=== PATIENT | female | born 1970 | race African-American/Black ===

== ENCOUNTER 2016-06-06 11:53 | Inpatient (IN) | payer OTHER ==
[2016-06-06 14:03] VITALS: BMI 31.8
--- NOTE | 2016-06-06 18:24 | HP ---
[id number] Restless Observation: 1= Difficult to Sit Still Pupil Size: 0= Normal to Room Light Bone or Joint Aches: 2= Severe Diffuse Aches Runny Nose/ Eye Tearin= Runny Nose/Eyes GI Upset > 30mins: 1= Stomach Cramp Tremor Observation: 1= Tremor Mcdonald, Not Seen Yawning Observation: 1= 1-2x During Session Anxiety or Irritability: 2=Irritable/Anxious Goose Flesh Skin: 3=Piloerection COWS Score: 14 CIWA Score - CIWA Score Nausea/Vomitin-Mild Nausea/No Vomiting Muscle Tremors: 3 Anxiety: 4-Mod. Anxious/Guarded Agitation: 4-Moderately Restless Paroxysmal Sweats: 1-Minimal Palms Moist Orientation: 1-Uncertain about Date Tacttile Disturbances: 0-None Auditory Disturbances: 0-None Visual Disturbances: 0-None Headache: 3-Moderate CIWA-Ar Total Score: 17 Admission ROS BHS - HPI Chief Complaint: withdrawal sx Allergies/Adverse Reactions: Allergies Allergy/AdvReac Type Severity Reaction Status Date / Time No Known Allergies Allergy Verified 06/06/16 17:23 History of Present Illness: 45 years old female with long history of opiate xanax nicotine dependence has hypertension diabetes ii and depression is admitted to detox Exam Limitations: No Limitations - Ebola screening Have you traveled outside of the country in the last 21 days: No Have you had contact with anyone from an Ebola affected area: No Have you been sick,other than usual withdrawal symptoms: No Do you have a fever: No - Review of Systems Constitutional: Chills, Changes in sleep, Weight Stable EENT: reports: Other (eye glase) Respiratory: reports: No Symptoms reported Cardiac: reports: No Symptoms Reported GI: reports: Nausea, Poor Fluid Intake, Abdominal cramping : reports: No Symptoms Reported Musculoskeletal: reports: Back Pain, Joint Pain, Muscle Pain, Neck Pain Integumentary: reports: No Symptoms Reported Neuro: reports: Tremors Endocrine: reports: No Symptoms Reported Hematology: reports: No Symptoms Reported Psychiatric: reports: Judgement Intact, Depressed Other Systems: Reviewed and Negative Patient History - Patient Medical History Hx Anemia: No Hx Asthma: No Hx Chronic Obstructive Pulmonary Disease (COPD): No Hx Cancer: No Hx Cardiac Disorders: No Hx Congestive Heart Failure: No Hx Hypertension: Yes Hx Hypercholesterolemia: No Hx Pacemaker: No HX Cerebrovascular Accident: No Hx Seizures: No Hx Dementia: No Hx Diabetes: Yes Hx Gastrointestinal Disorders: No Hx Liver Disease: No Hx Genitourinary Disorders: No Hx Sexually Transmitted Disorders: No Hx Renal Disease (ESRD): No Hx Thyroid Disease: No Hx Human Immunodeficiency Virus (HIV): No Hx Hepatitis C: No Hx Depression: Yes Hx Suicide Attempt: Yes (2009 cut left wrist) Hx Bipolar Disorder: No Hx Schizophrenia: No - Patient Surgical History Past Surgical History: No Hx Neurologic Surgery: No Hx Cataract Extraction: No Hx Cardiac Surgery: No Hx Lung Surgery: No Hx Breast Surgery: No Hx Breast Biopsy: No Hx Abdominal Surgery: No Hx Appendectomy: No Hx Cholecystectomy: No Hx Genitourinary Surgery: No Hx Section: No Hx Orthopedic Surgery: No Hx Hysterectomy: No - PPD History Previous Implant?: Yes Documented Results: Negative w/o proof Implanted On Prior R Admission?: No PPD to be Administered?: Yes - Reproductive History Patient is a Female of Child Bearing Age (11 -55 yrs old): Yes Last Menstrual Period: 11/07/15 Patient : No - Smoking Cessation Smoking history: Current every day smoker Have you smoked in the past 12 months: Yes Aproximately how many cigarettes per day: 15 Cigars Per Day: 0 Hx Chewing Tobacco Use: No Initiated information on smoking cessation: Yes 'Breaking Loose' booklet given: 06/06/16 - Substance & Tx. History Hx Alcohol Use: No Hx Substance Use: Yes Substance Use Type: Opiates, Tranquilizers Hx Substance Use Treatment: Yes - Substances Abused Heroin Route: Inhalation Frequency: Daily Amount used: 5 bags Age of first use: 32 Date of Last Use: 06/05/16 Alprazolam (Xanax) Route: Oral Frequency: 3-6 times per week Amount used: 2mg Age of first use: 32 Date of Last Use: 06/05/16 Family Disease History - Family Disease History Family History: Unable to Obtain (adopted) Admission Physical Exam BHS - Vital Signs Vital Signs: Vital Signs - 24 hr 06/06/16 13:55 Temperature 96.9 F L Pulse Rate 77 Respiratory 18 Rate Blood Pressure 194/110 - Physical General Appearance: Yes: Appropriately Dressed, Moderate Distress, Obese, Tremorous, Irritable, Sweating, Anxious HEENTM: Yes: Hearing grossly Normal, Normal ENT Inspection, Normocephalic, Normal Voice Respiratory: Yes: Chest Non-Tender, Lungs Clear, Normal Breath Sounds, No Respiratory Distress, No Accessory Muscle Use Neck: Yes: Supple, Trachea in good position Breast: Yes: Breasts Symetrical Cardiology: Yes: Regular Rhythm, Regular Rate, S1, S2 Abdominal: Yes: Non Tender, Soft Genitourinary: Yes: Within Normal Limits Back: Yes: Normal Inspection Musculoskeletal: Yes: full range of Motion, Gait Steady, Back pain, Muscle Pain Extremities: Yes: Normal Inspection, Normal Range of Motion, Non-Tender, Tremors Neurological: Yes: Alert, Motor Strength 5/5, Normal Response, Depressed Affect Integumentary: Yes: Warm, Clammy Lymphatic: Yes: Within Normal Limits - Diagnostic (1) Opioid dependence with withdrawal Current Visit: Yes Status: Acute (2) Sedative, hypnotic or anxiolytic dependence with withdrawal, uncomplicated Current Visit: Yes Status: Acute (3) Hypertension Current Visit: Yes Status: Acute Qualifiers: Hypertension type: essential hypertension Qualified Code(s): I10 - Essential (primary) hypertension (4) Diabetes mellitus type II, controlled Current Visit: Yes Status: Acute Qualifiers: Diabetes mellitus complication status: with neurologic complications Diabetes mellitus long term care administrator insulin use: without long term care administrator use (5) Nicotine dependence Current Visit: Yes Status: Acute Qualifiers: Nicotine product type: cigarettes Substance use status: in withdrawal Qualified Code(s): F17.213 - Nicotine dependence, cigarettes, with withdrawal (6) Depression (emotion) Current Visit: Yes Status: Suspected Qualifiers: Depression Type: dysthymia Qualified Code(s): F34.1 - Dysthymic disorder Cleared for Admission [facility] - Detox or Rehab [facility] Level of Care: Medically Managed Detox Regimen/Protocol: Methadone/Valium [facility] Breath Alcohol Content Breath Alcohol Content: 0 Urine Pregancy Test - Result Urine Test Results: Negative- NO Line Present Urine Drug Screen - Results Drug Screen Negative: No Urine Drug Screen Results: OPI-Opiates, BZO-Benzodiazepines
[2016-06-06] MEDS ORDERED: MENTHOL/PHENOL 1 EACH UD MM PRN (18:29)
[2016-06-06] MEDS ORDERED: diphenhydrAMINE HCL 50 MG CAPSULE PO PRN (18:29)
[2016-06-06] MEDS ORDERED: MAG HYDROX/AL HYDROX/SIMETH 30 ML UNIT-DOSE CUP PO PRN (18:29)
[2016-06-06] MEDS ORDERED: guaiFENesin/D-METHORPHAN HB 10 ML UNIT-DOSE CUPS PO PRN (18:29)
[2016-06-06] MEDS ORDERED: NICOTINE POLACRILEX 4 MG GUM BC PRN (18:29)
[2016-06-06] MEDS ORDERED: LOPERAMIDE HCL 2 MG CAPSULE PO PRN (18:29)
[2016-06-06] MEDS ORDERED: P-EPHED 60MG/TRIPROLIDI 2.5MG TABLET PO PRN (18:29)
[2016-06-06] MEDS ORDERED: MAGNESIUM HYDROX 2400MG/30ML ORAL SUSPENSION 30 ML CUP PO PRN (18:29)
[2016-06-06] MEDS ORDERED: MAGNESIUM CITRATE 300 ML BOTTLE PO PRN (18:29)
[2016-06-06] MEDS ORDERED: ACETAMINOPHEN 325 MG TABLET (FP) PO PRN (18:29)
[2016-06-06] MEDS ORDERED: cloNIDine HCL 0.1 MG TABLET PO PRN (18:41)
[2016-06-06] MEDS ORDERED: METHADONE HCL 10 MG TABLET (FOR DETOX USE ONLY) PO ONE ×2 (19:00→23:00)
[2016-06-06] MEDS ORDERED: diazePAM 5 MG TABLET PO ONE (19:00)
[2016-06-06] MEDS: METOPROLOL SUCCINATE 25 MG TAB.SR.24H (FP) PO SCH (19:06)
[2016-06-06] MEDS: amLODIPine BESYLATE 5 MG TABLET (FP) PO SCH (19:06)
[2016-06-06] MEDS: RANITIDINE HCL 150 MG TABLET (FP) PO SCH (23:02)
[2016-06-06] MEDS: THIAMINE HCL 100 MG TABLET (FP) PO SCH (23:02)
[2016-06-06] MEDS: CYCLOBENZAPRINE HCL 10 MG TABLET (FP) PO SCH (23:02)
[2016-06-06] MEDS: GABAPENTIN 100 MG CAPSULE (FP) PO SCH (23:02)
[2016-06-06] MEDS: diazePAM 5 MG TABLET PO SCH (23:03)
[2016-06-06 23:26] LABS: URINE APPEARANCE CLEAR; URINE BILIRUBIN NEGATIVE (NEGATIVE); URINE BLOOD NEGATIVE (NEGATIVE); URINE COLOR LTYELLOW; URINE GLUCOSE (UA) NEGATIVE (NEGATIVE); URINE KETONE NEGATIVE (NEGATIVE); URINE NITRITE POSITIVE (NEGATIVE); URINE PROTEIN NEGATIVE (NEGATIVE); URINE UROBILINOGEN NEGATIVE E.U./dl (0.2-1.0)
[2016-06-07 00:02] LABS: URINE LEUK ESTERASE TRACE (NEGATIVE)
[2016-06-07 00:05] LABS: URINE MUCUS RARE; URINE RBC 1 /hpf (0-3); URINE WBC 3 /hpf (3-5)
[2016-06-07] MEDS: GABAPENTIN 100 MG CAPSULE (FP) PO SCH ×3 (05:29→22:35)
[2016-06-07] MEDS: diazePAM 5 MG TABLET PO SCH ×3 (05:29→22:36)
[2016-06-07] MEDS: CYCLOBENZAPRINE HCL 10 MG TABLET (FP) PO SCH ×3 (05:29→22:36)
[2016-06-07] MEDS: metFORMIN HCL 500 MG TABLET (FP) PO SCH (07:50)
[2016-06-07] MEDS ORDERED: NICOTINE 21 MG/24 HOURS TOPICAL PATCH TD SCH (10:00)
[2016-06-07] MEDS ORDERED: METHADONE HCL 10 MG TABLET (FOR DETOX USE ONLY) PO SCH (10:00)
[2016-06-07] MEDS ORDERED: PRENATAL VITAMINS W/ FOLIC ACID TABLET (FP) PO SCH (10:00)
[2016-06-07 10:28] LABS: MCH 29.8 pg (25.7-33.7); MCHC 32.9 g/dl (32.0-36.0); MEAN CELL VOLUME 90.5 fl (80-96); MEAN PLT VOLUME 8.1 fl (7.5-11.1); PLATELET COUNT 265 K/MM3 (134-434); RDW 14.6 % (11.6-15.6); WHITE BLOOD COUNT 7.1 K/mm3 (4.0-10.0)
[2016-06-07] MEDS: METOPROLOL SUCCINATE 25 MG TAB.SR.24H (FP) PO SCH (10:31)
[2016-06-07] MEDS: amLODIPine BESYLATE 5 MG TABLET (FP) PO SCH (10:32)
[2016-06-07] MEDS: RANITIDINE HCL 150 MG TABLET (FP) PO SCH ×2 (10:32→22:36)
[2016-06-07] MEDS: diazePAM 5 MG TABLET PO PRN (10:32)
--- NOTE | 2016-06-07 10:58 | PN ---
[facility] CIWA - CIWA Score Nausea/Vomitin Muscle Tremors: 3 Anxiety: 3 Agitation: 3 Paroxysmal Sweats: 1-Minimal Palms Moist Orientation: 0-Oriented Tacttile Disturbances: 1-Very Mild Itch/Numbness Auditory Disturbances: 1-Very Mild Visual Disturbances: 1-Very Mild Sensitivity Headache: 2-Mild CIWA-Ar Total Score: 18 BHS COWS - Scale Resting Pulse: 1= [place] 81-100 Sweatin= Chills/Flushing Restless Observation: 3= Extraneous Movement Pupil Size: 1= Pupils >than Normal Bone or Joint Aches: 2= Severe Diffuse Aches Runny Nose/ Eye Tearin= Runny Nose/Eyes GI Upset > 30mins: 2= Nausea/Diarrhea Tremor Observation of Outstretched Hands: 2= Slight Tremor Visible Yawning Observation: 1= 1-2x During Session Anxiety or Irritability: 2=Irritable/Anxious Goose Flesh Skin: 0=Smooth Skin COWS Score: 17 S Progress Note (SOAP) Subjective: ALERT,IRRITABLE,ANXIOUS,INTERRUPTED SLEEP,TREMOR,PAIN IN THE BODY AND BACK Objective: 06/07/16 10:56 Vital Signs Temperature 98.8 F 06/07/16 09:53 Pulse Rate 86 06/07/16 09:53 Respiratory Rate 18 06/07/16 09:53 Blood Pressure 133/76 06/07/16 09:53 O2 Sat by Pulse Oximetry (%) EKG NSR,NORMAL ECG Laboratory Last Values WBC 7.1 K/mm3 (4.0-10.0) 06/07/16 07:50 RBC 4.57 M/mm3 (3.60-5.2) 06/07/16 07:50 Hgb 13.6 GM/dL (10.7-15.3) 06/07/16 07:50 Hct 41.4 % (32.4-45.2) 06/07/16 07:50 MCV 90.5 fl (80-96) 06/07/16 07:50 MCHC 32.9 g/dl (32.0-36.0) 06/07/16 07:50 RDW 14.6 % (11.6-15.6) 06/07/16 07:50 Plt Count 265 K/MM3 (134-434) 06/07/16 07:50 MPV 8.1 fl (7.5-11.1) 06/07/16 07:50 POC Glucometer 97 UNITS (()) 06/07/16 05:28 Urine Color Ltyellow 06/06/16 19:34 Urine Appearance Clear 06/06/16 19:34 Urine pH 7.0 (5.0-8.0) 06/06/16 19:34 Ur Specific [place] 1.010 (1.001-1.035) 06/06/16 19:34 Urine Protein Negative (NEGATIVE) 06/06/16 19:34 Urine Glucose (UA) Negative (NEGATIVE) 06/06/16 19:34 Urine Ketones Negative (NEGATIVE) 06/06/16 19:34 Urine Blood Negative (NEGATIVE) 06/06/16 19:34 Urine Nitrite Positive (NEGATIVE) 06/06/16 19:34 Urine Bilirubin Negative (NEGATIVE) 06/06/16 19:34 Urine Urobilinogen Negative E.U./dl (0.2-1.0) 06/06/16 19:34 Ur Leukocyte Esterase Trace (NEGATIVE) H 06/06/16 19:34 Urine RBC 1 /hpf (0-3) 06/06/16 19:34 Urine WBC 3 /hpf (3-5) 06/06/16 19:34 Ur Epithelial Cells Rare /hpf (FEW) 06/06/16 19:34 Urine Mucus Rare 06/06/16 19:34 LABS PENDING 06/07/16 10:58 Assessment: 06/07/16 10:58 WITHDRAWAL SYMPTOM Plan: CONTINUE DETOX
[2016-06-07 11:11] LABS: ALBUMIN 3.6 g/dl (3.4-5.0); BILIRUBIN,TOTAL 0.7 mg/dL (0.2-1.0); CALCIUM 8.5 mg/dL (8.5-10.1); TOT PROT 7.1 g/dl (6.4-8.2)
--- NOTE | 2016-06-07 12:53 | CONSULT ---
[facility] Psychiatric Consult - Data Date of interview: 06/07/16 Admission source: [facility] Identifying data: First admission to [facility] for this 45 y/o AA female seeking detox treatment for heroin and xanax dependence.Patient is single,a mother of one,domiciled and currently employed. Substance Abuse History: - Smoking Cessation. Smoking history: Current every day smoker. Have you smoked in the past 12 months: Yes. Aproximately how many cigarettes per day: 15. Cigars Per Day: 0. Hx Chewing Tobacco Use: No. Initiated information on smoking cessation: Yes. 'Breaking Loose' booklet given : 06/06/16. - Substance & Tx. History. Hx Alcohol Use: No. Hx Substance Use: Yes. Substance Use Type: Opiates, Tranquilizers. Hx Substance Use Treatment: Yes. - Substances Abused. Heroin. Route: Inhalation. Frequency: Daily. Amount used: 5 bags. Age of first use: 32. Date of Last Use: 06/05/16. Alprazolam (Xanax). Route: Oral. Frequency: 3-6 times per week. Amount used: 2mg. Age of first use: 32. Date of Last Use: 06/05/16. Confirmed by patient. Medical History: Diabetes mellitus (diet-controlled) and hypertension. Psychiatric History: Patient admits to one psychiatric hospitalization,in 2009, at the [facility].Circumstances of admission : suicide attempt ( wrist-cutting) in response to losing custody of daughter.Diagnosed with MDD.Prescribed prozac 20 mg/day + seroquel 300 mg/hs.Last took these medications two days ago.Ms Alcala sees a private psychiatrist,Dr Hartmann,in [facility].Chronic insomnia is reported by the patient. Additional Comment: Urine Drug Screen Results: OPI-Opiates, BZO-Benzodiazepines Mental Status Exam - Mental Status Exam Alert and Oriented to: Time, Place, Person Cognitive Function: Good Patient Appearance: Well Groomed Mood: Hopeful, Euthymic Affect: Appropriate, Normal Range Patient Behavior: Appropriate, Cooperative (well-mannered) Speech Pattern: Clear, Appropriate Voice Loudness: Normal Thought Process: Intact, Goal Oriented Thought Disorder: Not Present Hallucinations: Denies Suicidal Ideation: Denies Homicidal Ideation: Denies Insight/Judgement: Fair Sleep: Poorly, Difficulty falling asleep Appetite: Good Muscle strength/Tone: Normal Gait/Station: Normal Psychiatric Findings - Problem List ([place] 1, 2,3) (1) Opioid dependence with withdrawal Current Visit: Yes Status: Acute (2) Sedative, hypnotic or anxiolytic dependence with withdrawal, uncomplicated Current Visit: Yes Status: Acute (3) Nicotine dependence Current Visit: Yes Status: Acute Qualifiers: Nicotine product type: cigarettes Substance use status: in withdrawal Qualified Code(s): F17.213 - Nicotine dependence, cigarettes, with withdrawal (4) MDD (major depressive disorder) Current Visit: Yes Status: Chronic (5) Diabetes mellitus type II, controlled Current Visit: Yes Status: Chronic Qualifiers: Diabetes mellitus complication status: with neurologic complications Diabetes mellitus termite control technician insulin use: without residential use (6) Hypertension Current Visit: Yes Status: Chronic Qualifiers: Hypertension type: essential hypertension Qualified Code(s): I10 - Essential (primary) hypertension (7) Insomnia Current Visit: Yes Status: Acute - Initial Treatment Plan Initial Treatment Plan: Psychoeducation.Detoxification.Medications : prozac 20 mg po daily + seroquel 200 mg po hs (reduced).Will titrate seroquel up to 300 mg /hs if clinically indicated.Side effects/benefits discussed with the patient.Made aware of the risk for metabolic syndrome,hepatic dysfunction, abnormal involuntary movements,oversedation/falls with the use of seroquel, recurrent suicidal ideation,sexual dysfunction (anorgasmia,decreased libido) that can occur with prozac.Ms Alcala reports a prior history of good tolerability (no adverse events) to these two drugs.Consents (verbally) to the inclusion of these medications in this current regimen.Observation.Medications are verified by pharmacy claims (filled scripts from Dr Melvin Hartmann @ [facility] # [id number] on 12/10/15).
[2016-06-07] MEDS ORDERED: FLUoxetine HCL 20 MG CAPSULE (FP) PO SCH (14:00)
[2016-06-07] MEDS ORDERED: QUEtiapine FUMARATE 200 MG TABLET PO SCH (22:00)
[2016-06-07] MEDS: THIAMINE HCL 100 MG TABLET (FP) PO SCH (22:36)
[2016-06-08] MEDS: GABAPENTIN 100 MG CAPSULE (FP) PO SCH (05:04)
[2016-06-08] MEDS: diazePAM 5 MG TABLET PO PRN (05:04)
[2016-06-08] MEDS: CYCLOBENZAPRINE HCL 10 MG TABLET (FP) PO SCH (05:05)
[2016-06-08] MEDS: metFORMIN HCL 500 MG TABLET (FP) PO SCH (07:45)
--- NOTE | 2016-06-08 09:34 | PN ---
S CIWA - CIWA Score Nausea/Vomitin Muscle Tremors: 3 Anxiety: 3 Agitation: 3 Paroxysmal Sweats: 1-Minimal Palms Moist Orientation: 0-Oriented Tacttile Disturbances: 1-Very Mild Itch/Numbness Auditory Disturbances: 1-Very Mild Visual Disturbances: 1-Very Mild Sensitivity Headache: 2-Mild CIWA-Ar Total Score: 18 BHS COWS - Scale Resting Pulse: 0= [place] 80 or Below Sweatin= Chills/Flushing Restless Observation: 3= Extraneous Movement Pupil Size: 1= Pupils >than Normal Bone or Joint Aches: 2= Severe Diffuse Aches Runny Nose/ Eye Tearin= Runny Nose/Eyes GI Upset > 30mins: 2= Nausea/Diarrhea Tremor Observation of Outstretched Hands: 2= Slight Tremor Visible Yawning Observation: 1= 1-2x During Session Anxiety or Irritability: 2=Irritable/Anxious Goose Flesh Skin: 0=Smooth Skin COWS Score: 16 S Progress Note (SOAP) Subjective: ALERT,IRRITABLE,ANXIOUS,INTERRUPTED SLEEP,TREMOR,PAIN IN THE BODY Objective: 06/08/16 09:33 Vital Signs Temperature 97.7 F 06/08/16 05:51 Pulse Rate 60 06/08/16 05:51 Respiratory Rate 16 06/08/16 05:51 Blood Pressure 119/65 06/08/16 05:51 O2 Sat by Pulse Oximetry (%) 06/08/16 09:33 Laboratory Last Values WBC 7.1 K/mm3 (4.0-10.0) 06/07/16 07:50 RBC 4.57 M/mm3 (3.60-5.2) 06/07/16 07:50 Hgb 13.6 GM/dL (10.7-15.3) 06/07/16 07:50 Hct 41.4 % (32.4-45.2) 06/07/16 07:50 MCV 90.5 fl (80-96) 06/07/16 07:50 MCHC 32.9 g/dl (32.0-36.0) 06/07/16 07:50 RDW 14.6 % (11.6-15.6) 06/07/16 07:50 Plt Count 265 K/MM3 (134-434) 06/07/16 07:50 MPV 8.1 fl (7.5-11.1) 06/07/16 07:50 Sodium 144 mmol/L (136-145) 06/07/16 07:50 Potassium 3.8 mmol/L (3.5-5.1) 06/07/16 07:50 Chloride 108 mmol/L (98-107) H 06/07/16 07:50 Carbon Dioxide 24 mmol/L (21-32) 06/07/16 07:50 Anion Gap 12 (8-16) 06/07/16 07:50 BUN 14 mg/dL (7-18) 06/07/16 07:50 Creatinine 1.0 mg/dL (0.55-1.02) 06/07/16 07:50 Creat Clearance w eGFR 59.69 (>60) 06/07/16 07:50 POC Glucometer 97 UNITS (()) 06/07/16 05:28 Random Glucose 93 mg/dL (74-106) 06/07/16 07:50 Calcium 8.5 mg/dL (8.5-10.1) 06/07/16 07:50 Total Bilirubin 0.7 mg/dL (0.2-1.0) 06/07/16 07:50 AST 12 U/L (15-37) L 06/07/16 07:50 ALT 16 U/L (12-78) 06/07/16 07:50 Alkaline Phosphatase 126 U/L (45-117) H 06/07/16 07:50 Total Protein 7.1 g/dl (6.4-8.2) 06/07/16 07:50 Albumin 3.6 g/dl (3.4-5.0) 06/07/16 07:50 Urine Color Ltyellow 06/06/16 19:34 Urine Appearance Clear 06/06/16 19:34 Urine pH 7.0 (5.0-8.0) 06/06/16 19:34 Ur Specific [place] 1.010 (1.001-1.035) 06/06/16 19:34 Urine Protein Negative (NEGATIVE) 06/06/16 19:34 Urine Glucose (UA) Negative (NEGATIVE) 06/06/16 19:34 Urine Ketones Negative (NEGATIVE) 06/06/16 19:34 Urine Blood Negative (NEGATIVE) 06/06/16 19:34 Urine Nitrite Positive (NEGATIVE) 06/06/16 19:34 Urine Bilirubin Negative (NEGATIVE) 06/06/16 19:34 Urine Urobilinogen Negative E.U./dl (0.2-1.0) 06/06/16 19:34 Ur Leukocyte Esterase Trace (NEGATIVE) H 06/06/16 19:34 Urine RBC 1 /hpf (0-3) 06/06/16 19:34 Urine WBC 3 /hpf (3-5) 06/06/16 19:34 Ur Epithelial Cells Rare /hpf (FEW) 06/06/16 19:34 Urine Mucus Rare 06/06/16 19:34 Assessment: 06/08/16 09:34 WITHDRAWAL SYMPTOM Plan: CONTINUE DETOX
--- NOTE | 2016-06-08 09:36 | PN ---
S Progress Note Note: PATIENT DID NOT WANT TO COMPLETE TREATMENT,STATED SHE HAS TO GO TO WORK,SIGNED RELEASE AMA,SEEN BY COUNSELOR
--- NOTE | 2016-06-08 09:43 | DS ---
[facility] Detox Discharge Summary Admission Date: 06/06/16 Discharge Date: 06/08/16 - History Present History: Opioid Dependence Additional Comments: PATIENT DID NOT WANT TO COMPLETE TREATMENT,SIGNED RELEASE AMA,STATED SHE HAS TO GO TO WORK, SEEN BY COUNSELOR,ADVISE TO SEE PMD FOR MEDICAL PROBLEM Pertinent Past History: HTN TYPE 2 DM DEPRESSION NICOTINE DEPENDENCE - Physical Exam Results Vital Signs: Vital Signs Temperature 97.7 F 06/08/16 05:51 Pulse Rate 60 06/08/16 05:51 Respiratory Rate 16 06/08/16 05:51 Blood Pressure 119/65 06/08/16 05:51 O2 Sat by Pulse Oximetry (%) Pertinent Admission Physical Exam Findings: WITHDRAWAL SYMPTOM - Medication Discharge Medications: Ambulatory Orders Fluoxetine HCl [Prozac -] 20 mg PO DAILY 06/06/16 Metformin HCl [Glucophage -] 100 mg PO DAILY 06/06/16 Metoprolol Tartrate [Lopressor -] 25 mg PO DAILY 06/06/16 Metoprolol Tartrate [Lopressor -] 25 mg PO DAILY 06/06/16 Quetiapine Fumarate [Seroquel -] 300 mg PO HS 06/06/16 Fluoxetine HCl [Prozac -] 20 mg PO DAILY #30 capsule 06/07/16 Quetiapine Fumarate [Seroquel] 300 mg PO HS #30 tablet 06/07/16 Amlodipine Besylate [Norvasc -] 5 mg PO DAILY #30 tablet 06/08/16 - AMA Did Patient Leave Against Medical Advice: Yes
[2016-06-08] MEDS ORDERED: METHADONE HCL 5 MG TABLET (FOR DETOX USE ONLY) PO SCH (10:00)
[2016-06-08] MEDS ORDERED: diazePAM 5 MG TABLET PO SCH (10:00)
[2016-06-08 10:43] VITALS: BP 131/88; PULSE 78; TEMP 98.1
[2016-06-10] MEDS ORDERED: diazePAM 5 MG TABLET PO SCH (10:00)
[2016-06-10] MEDS ORDERED: METHADONE HCL 10 MG TABLET (FOR DETOX USE ONLY) PO SCH (10:00)
--- NOTE | 2016-06-10 23:40 | EKG ---
Test Reason : Blood Pressure : / mmHG Vent. Rate : 075 BPM Atrial Rate : 075 BPM P-R Int : 132 ms QRS Dur : 078 ms QT Int : 346 ms P-R-T Axes : 049 070 076 degrees QTc Int : 386 ms NORMAL SINUS RHYTHM NORMAL ECG NO PREVIOUS ECGS AVAILABLE Confirmed by ALEKSANDRA ROBIN MD ([id number]) on 06/10/2016 11:40:31 PM Referred By: Confirmed By:ALEKSANDRA ROBIN MD
[2016-06-11] MEDS ORDERED: METHADONE HCL 5 MG TABLET (FOR DETOX USE ONLY) PO SCH (06:00)
== END 2016-06-08 10:05 | disposition left against medical advice (07) | DRG 894 ==
LOC: YASAS 11:53 → Y6N 18:27
PROVIDERS: ADMIT Internal Medicine; ATTEND Internal Medicine
PROC: HZ2ZZZZ Detoxification Services for Substance Abuse Treatment (ICD-10-PCS; principal; 2016-06-06)
DX: F11.23 Opioid dependence with withdrawal (principal); F33.9 Major depressive disorder, recurrent, unspecified; F13.230 Sedative, hypnotic or anxiolytic dependence with withdrawal, uncomplicated; F17.210 Nicotine dependence, cigarettes, uncomplicated; I10 Essential (primary) hypertension; E11.9 Type 2 diabetes mellitus without complications; G47.00 Insomnia, unspecified; Z91.5 Personal history of self-harm
CPT/HCPCS: 36415; 80053; 81003; 81015; 85027; 86593; 93005; 93010